=== PATIENT | female | born 1995 | race Caucasian/White ===

== ENCOUNTER 2017-02-13 15:06 | Emergency (ER) | payer OTHER ==
[2017-02-13 15:59] VITALS: BP 117/68
--- NOTE | 2017-02-13 16:03 | UC ---
Respiratory Complaint HPI - HPI Summary HPI Summary: cough and congestion for 3 days no fevers, - History of Current Complaint Chief Complaint: UCRespiratory Stated Complaint: COUGH,CHEST CONGESTION Time Seen by Provider: 02/13/17 15:52 Hx Obtained From: Patient Hx Last Menstrual Period: 02/13/17 ?: No Onset/Duration: Sudden Onset, Lasting Days - 3, Still Present Timing: Constant Severity Initially: Mild Severity Currently: Mild Character: Cough: Nonproductive Aggravating Factors: Nothing Associated Signs And Symptoms: Positive: Pleuritic Chest Pain, URI, Nasal Congestion. Negative: Dyspnea, Fever, Chills - Allergies/Home Medications Allergies/Adverse Reactions: Allergies Allergy/AdvReac Type Severity Reaction Status Date / Time No Known Allergies Allergy Verified 02/13/17 15:55 PMH/Surg Hx/FS Hx/Imm Hx Previously Healthy: Yes Respiratory History Of: Reports: Asthma - as child - Surgical History Surgical History: None - Family History Known Family History: Positive: None Family History: no cardio vascular issues in family lineage - Social History Occupation: Student Lives: With Family Alcohol Use: Weekly Alcohol Amount: Weekends Substance Use Type: None Smoking Status (MU): Current Some Day Smoker Type: Cigarettes Amount Used/How Often: 2 cigs/day Have You Smoked in the Last Year: Yes Cessation Counseling: Patient Advised to Stop - Immunization History Most Recent Influenza Vaccination: None Most Recent Tetanus Shot: UTD Most Recent Pneumonia Vaccination: n/a Review of Systems Constitutional: Negative Skin: Negative Eyes: Negative ENT: Negative Respiratory: Cough Cardiovascular: Negative Gastrointestinal: Negative Genitourinary: Negative Motor: Negative Neurovascular: Negative Musculoskeletal: Negative Neurological: Negative Psychological: Negative All Other Systems Reviewed And Are Negative: Yes Physical Exam Triage Information Reviewed: Yes Appearance: Well-Appearing, No Pain Distress, Well-Nourished Vital Signs: Initial Vital Signs Temp 98.3 F 02/13/17 15:56 Pulse 62 02/13/17 15:56 Resp 18 02/13/17 15:56 BP 117/68 02/13/17 15:56 Pulse Ox 98 02/13/17 15:56 Vital Signs Reviewed: Yes Eye Exam: Normal Eyes: Positive: Conjunctiva Clear ENT Exam: Normal ENT: Positive: Normal ENT inspection, Hearing grossly normal, Pharynx normal, TMs normal. Negative: Nasal congestion, Nasal drainage, Tonsillar swelling, Tonsillar exudate, Trismus, Muffled/hoarse voice Dental Exam: Normal Neck exam: Normal Neck: Positive: Supple, Nontender, No Lymphadenopathy Respiratory Exam: Normal Respiratory: Positive: Chest non-tender, Lungs clear, Normal breath sounds, No respiratory distress, No accessory muscle use Cardiovascular Exam: Normal Cardiovascular: Positive: RRR, No Murmur, Pulses Normal, Brisk Capillary Refill Musculoskeletal Exam: Normal Musculoskeletal: Positive: Strength Intact, ROM Intact, No Edema Neurological Exam: Normal Neurological: Positive: Alert, Muscle Tone Normal Psychological Exam: Normal Skin Exam: Normal UC Diagnostic Evaluation - Laboratory O2 Sat by Pulse Oximetry: 98 Respiratory Course/Dx - Course Course Of Treatment: Albuterol, otc cough and cold medications should symptoms fail to resolve or get worse in 7 days you may concider starting antibiodic - Differential Dx/Diagnosis Differential Diagnosis/HQI/PQRI: Asthma, Bronchitis, Influenza, Laryngitis, Lower Resp Infection Provider Diagnoses: Bronchitis---most likely viral illness Discharge - Discharge Plan Condition: Stable Disposition: HOME Prescriptions: Albuterol HFA INHALER* [Ventolin HFA Inhaler*] 2 puff INH Q4H PRN #1 mdi PRN Reason: chest congestion/cough Azithromycin TAB* [Zithromax TAB (Z-AMANDA) 250 mg #6 tabs] 2 tab PO .TODAY, THEN 1 DAILY #1 amanda Patient Education Materials: How to Use a Metered-Dose Inhaler (ED), Acute Cough (ED) Referrals: [facility] [place] [facility] [place] [facility] [Outside] - If Needed (or your [facility])
== END 2017-02-13 16:18 | disposition home or self-care (01) ==
LOC: UCCORT 15:06
DX: J40 Bronchitis, not specified as acute or chronic (principal); Z72.0 Tobacco use
CPT/HCPCS: 99202; G0463